=== PATIENT | female | born 1990 | race Caucasian/White ===

== ENCOUNTER → 2022-01-22 | Outpatient (CLI) | payer OTHER ==
--- NOTE | 2022-01-22 08:47 | MM ---
Reason for Exam: Clinical finding. Baseline mammogram. Patient History: Menarche at age 12. First Full-Term at age 21. Hysterectomy at age 29. Hormonal Contraceptives, from age 16 until age 29. Mother had breast cancer, age 39. Prior Study Comparison: Patient's first Mammogram. Tissue Density: The breast tissue is extremely dense which could obscure a lesion on mammography. Findings: Analyzed By CAD. No obvious mass or distortion or suspicious group of microcalcifications in either breast. Overall Assessment: Incomplete: need additional imaging evaluation, BI-RAD 0 Management: Diagnostic Breast Ultrasound of the right breast. Targeted ultrasound right due to palpable abnormality. Electronically signed and approved by: Prosper East M.D.
--- NOTE | 2022-01-22 09:28 | USB ---
Reason for Exam: Clinical finding. Patient History: Menarche at age 12. First Full-Term at age 21. Hysterectomy at age 29. Hormonal Contraceptives, from age 16 until age 29. Mother had breast cancer, age 39. Technique: Method: Targeted. Palpable. Findings: The upper outer quadrant of the right breast was scanned. Dense tissue on targeted ultrasound is identified correlating with same day mammogram. No suspicious solid or cystic mass or abnormal fluid collection is seen. Electronically signed and approved by: Prosper East M.D.
== END | disposition home or self-care (01) ==
LOC: RADMAMWWP 08:14
PROVIDERS: ATTEND Family Medicine
DX: N64.89 Other specified disorders of breast (principal); Z80.3 Family history of malignant neoplasm of breast
CPT/HCPCS: 77062; 77066

== ENCOUNTER → 2022-08-10 | Outpatient (CLI) | payer OTHER ==
[2022-08-10 14:27] LABS: Basophils # (A) 0.08 X 10*3/uL (0.00-0.10); Basophils % (A) 0.9 %; Eosinophils # (A) 0.26 X 10*3/uL (0.04-0.35); Eosinophils % (A) 3.1 %; HCT 43.7 % (37.2-46.3); HGB 14.6 g/dL (12.0-15.0); Immature Grans, Automated 0.2 %; Lymphocytes # (A) 2.68 X 10*3/uL (0.90-5.00); Lymphocytes % (A) 31.5 %; MCHC 33.4 g/dL (32.0-37.0); MCV 95.8 fL (80.0-97.0); Mean Platelet Volume 11.1 fL (9.5-12.2); Monocytes # (A) 0.56 X 10*3/uL (0.20-1.00); Monocytes % (A) 6.6 %; NRBC Per 100 WBC 0 /100 WBCS (0.0-0.0); Neutrophils # (A) 4.91 X 10*3/uL (1.80-7.70); Neutrophils % (A) 57.7 %; Platelet Count 414 X 10*3/uL (140-440); RBC 4.56 X 10*6/uL (4.10-5.20); RDW 12.3 % (11.5-14.5); WBC 8.51 X 10*3/uL (4.50-10.00)
[2022-08-10 15:20] LABS: % Iron Saturation 30.73 (12.00-45.00); Ferritin 52.9 ng/mL (10.0-291.0); T4, Free (Free Thyroxine) 1.48 ng/dL (0.800-1.800)
== END | disposition home or self-care (01) ==
LOC: LABWHC1 08:38
PROVIDERS: ATTEND Dermatology
DX: L30.9 Dermatitis, unspecified (principal)
CPT/HCPCS: 36415; 82306; 82728; 83540; 83550; 84439; 84443; 85025

== ENCOUNTER → 2023-02-03 | Outpatient (CLI) | payer OTHER ==
--- NOTE | 2023-02-03 16:22 | US ---
EXAMINATION TYPE: US pelvic complete DATE OF EXAM: 02/03/2023 COMPARISON: NONE CLINICAL INDICATION: Female, 32 years old with history of N83.209 OVARIAN CYST, Z90.710 HX HYSTERECTO MY; hysterectomy 2019, possible PCOS, pelvic pain TECHNIQUE: TA. Transabdominal sonographic images of the pelvis were acquired. Date of LMP: hysterectomy EXAM MEASUREMENTS: Uterus: Surgically absent Endometrial Stripe: Surgically absent Right Ovary: 3.3 x 2.8 x 2.4 cm Left Ovary: 3.2 x 2.6 x 2.8cm cm 1. Uterus: Surgically absent 2. Endometrium: Surgically absent 3. Right Ovary: simple cyst = 2.2 x 2.1 x 1.9cm 4. Left Ovary: multiple small follicles seen. These appear to be peripheral and can be associated wi th polycystic ovarian disease. 5. Bilateral Adnexa: wnl 6. Posterior cul-de-sac: wnl Urinary bladder is sonolucent. The posterior wall is normal. IMPRESSION: 1. Simple right ovarian cyst. Follow-up 6 weeks can be performed. 2. Small peripheral follicles left ovary can be compatible with polycystic ovarian disease.
== END | disposition home or self-care (01) ==
LOC: RADUSWWP 09:33
PROVIDERS: ATTEND Student in an Organized Health Care Education/Training Program
DX: N83.201 Unspecified ovarian cyst, right side (principal); Z90.710 Acquired absence of both cervix and uterus
CPT/HCPCS: 76856

== ENCOUNTER 2023-02-14 01:15 | Emergency (ER) | payer OTHER ==
--- NOTE | 2023-02-14 01:45 | ED ---
General Adult HPI - General Stated complaint: Etoh Time Seen by Provider: 02/14/23 01:16 - History of Present Illness Initial comments: This is a 32-year-old female with no past medical history presents emergency department via EMS for EtOH abuse. The patient stated that "I feel so stupid being here and I have no problems right now." The patient did state that she was drinking today and had one episode of vomiting and thought that she was having an anxiety attack she called EMS. On my evaluation, the patient was laughing, able to answer all questions appropriately and stated that she had no acute concerns at this time. The patient denied of any falls or any trauma. The patient was resting in bed comfortably, mildly intoxicated. Review of Systems ROS Statement: Those systems with pertinent positive or pertinent negative responses have been documented in the HPI. ROS Other: All systems not noted in ROS Statement are negative. General Exam Limitations: no limitations General appearance: alert, in no apparent distress, appears intoxicated Head exam: Present: atraumatic, normocephalic, normal inspection Eye exam: Present: normal appearance, PERRL Pupils: Present: normal accommodation ENT exam: Present: normal exam, normal oropharynx, mucous membranes moist Neck exam: Present: normal inspection, full ROM Respiratory exam: Present: normal lung sounds bilaterally Cardiovascular Exam: Present: regular rate, normal rhythm, normal heart sounds GI/Abdominal exam: Present: soft, normal bowel sounds Extremities exam: Present: normal inspection, full ROM Back exam: Present: normal inspection, full ROM Neurological exam: Present: alert, oriented X3, CN II-XII intact Psychiatric exam: Present: normal affect, normal mood Skin exam: Present: warm, dry Course Vital Signs 02/14/23 01:38 Pulse Rate 84 Respiratory 18 Rate Blood Pressure 126/91 O2 Sat by Pulse 98 Oximetry Medical Decision Making - Medical Decision Making Was pt. sent in by a medical professional or institution (, PA, SYSTEMS ADMINISTRATION ANALYST, urgent care, hospital, or senior care...) When possible be specific @ -No Did you speak to anyone other than the patient for history (EMS, parent, family, police, friend...)? What history was obtained from this source @ -No Did you review nursing and triage notes (agree or disagree)? Why? @ -I reviewed and agree with nursing and triage notes Were old charts reviewed (outside hosp., previous admission, EMS record, old EKG, old radiological studies, urgent care reports/EKG's, senior care records)? Report findings @ -No old charts were reviewed Differential Diagnosis (chest pain, altered mental status, abdominal pain women, abdominal pain men, vaginal bleeding, weakness, fever, dyspnea, syncope, headache, dizziness, GI bleed, back pain, seizure, CVA, palpatations, mental health)? @ -EtOH intoxication, anxiety, nausea EKG interpreted by me (3pts min.). @ -None X-rays interpreted by me (1pt min.). @ -None done CT interpreted by me (1pt min.). @ -None done U/S interpreted by me (1pt. min.). @ -None done What testing was considered but not performed or refused? (CT, X-rays, U/S, labs)? Why? @ -None What meds were considered but not given or refused? Why? @ -None Did you discuss the management of the patient with other professionals (professionals i.e. , PA, SYSTEMS ADMINISTRATION ANALYST, lab, RT, psych nurse, director social service, solar energy technician, teacher, network security officer, showcase trimmer)? Give summary @ -No Was smoking cessation discussed for >3mins.? @ -No Was critical care preformed (if so, how long)? @ -No Were there social determinants of health that impacted care today? How? (Homelessness, low income, unemployed, alcoholism, drug addiction, transportation, low edu. Level, literacy, decrease access to med. care, alf, rehab)? @ -No Was there de-escalation of care discussed even if they declined (Discuss DNR or withdrawal of care, Hospice)? DNR status @ -No What co-morbidities impacted this encounter? (DM, HTN, Smoking, COPD, CAD, Cancer, CVA, ARF, Chemo, Hep., AIDS, mental health diagnosis, sleep apnea, morbid obesity)? @ -None Was patient admitted / discharged? Hospital course, mention meds given and route, prescriptions, significant lab abnormalities, going to OR and other pertinent info. @ -The patient was seen and evaluated in the emergency department. Physical exam, the patient was resting in bed comfortably without any acute pain or complaints. Vital signs were stable. The patient was mildly intoxicated however was able to answer all questions appropriate. The patient stated that she denied of any acute complaints or concerns at this time and did have a significant other who was in the emergency department. The patient did not require any further imaging or workup at this time and was stable for discharge home and she did not have any complaints. The patient was agreeable to this and was discharged home in stable condition with her significant other. Undiagnosed new problem with uncertain prognosis? @ -No Drug Therapy requiring intensive monitoring for toxicity (Heparin, Nitro, Insulin, Cardizem)? @ -No Were any procedures done? @ -No Diagnosis/symptom? @ -Alcohol intoxication Acute, or Chronic, or Acute on Chronic? @ -Acute Uncomplicated (without systemic symptoms) or Complicated (systemic symptoms)? @ -Uncomplicated Side effects of treatment? @ -No Exacerbation, Progression, or Severe Exacerbation? @ -No Poses a threat to life or bodily function? How? (Chest pain, [place], [place], pneumonia, PE, COPD, DKA, ARF, appy, cholecystitis, CVA, Diverticulitis, Homicidal, Suicidal, threat to staff... and all critical care pts) @ -No Disposition Clinical Impression: Alcohol intoxication Disposition: HOME SELF-CARE Condition: Stable Instructions (If sedation given, give patient instructions): Alcohol Intoxication (DC) Is patient prescribed a controlled substance at d/c from ED?: No Referrals: None,Stated [REFERRING] - 1-2 days Time of Disposition: 01:40
[2023-02-14 01:48] VITALS: BP 126/91; PULSE 84; RESP 18
== END 2023-02-14 01:51 | disposition home or self-care (01) ==
LOC: EC 01:15
DX: F10.129 Alcohol abuse with intoxication, unspecified (principal)
CPT/HCPCS: 99284

== ENCOUNTER → 2024-07-13 | Outpatient (CLI) | payer OTHER ==
[2024-07-13 16:00] LABS: BUN/Creat Ratio 16.89 Ratio (12.00-20.00); Blood Urea Nitrogen 15.2 mg/dL (9.0-27.0); Carbon Dioxide 25.3 mmol/L (21.6-31.8); Chloride 98 mmol/L (96-109); Glucose 87 mg/dL (70-110); Potassium 4.3 mmol/L (3.5-5.5); Sodium 136 mmol/L (135-145)
== END | disposition home or self-care (01) ==
LOC: LABWHC1 08:20
PROVIDERS: ATTEND Dermatology
DX: L65.8 Other specified nonscarring hair loss (principal)
CPT/HCPCS: 36415; 80048